=== PATIENT | male | born 1985 | race Caucasian/White ===

== ENCOUNTER 2016-04-09 16:22 | Emergency (ER) | payer MEDICARE, MEDICAID ==
[2016-04-09] MEDS ORDERED: ONDANSETRON HCL 4 MG/2 ML VIAL ONE ×2 (16:48→17:18)
[2016-04-09] MEDS ORDERED: OSELTAMIVIR PHOSPHATE 75 MG CAPSULE PO ONE (17:22)
[2016-04-09] MEDS ORDERED: ACETAMINOPHEN 325 MG TABLET PO ONE (17:23)
[2016-04-09] MEDS ORDERED: IBUPROFEN 600 MG TABLET PO ONE (17:23)
--- NOTE | 2016-04-09 18:17 | ER PHYSICIAN DOCUMENTATION ---
Physician Documentation [facility] Name:Link Angulo Age:30 yrs Sex:Male :1985 Arrival Date:04/09/2016 Time:16:22 Bed1 Private MD:Verito Josue ED, Chris Disposition: 04/09 17:50 Chart complete. cd Disposition: 04/09/16 18:00 Discharged to Home/Self Care. Impression: Influenza, Vomiting - Dehydration. - Condition is Fair. - Discharge Instructions: DEHYDRATION (6y-Adult), INFLUENZA (Adult), VOMITING (6y-Adult). - Prescriptions for Tamiflu 75 mg Oral Capsule - take 1 capsule by ORAL route every 12 hours for 5 days; 10 capsule. Zofran 4 mg Oral - take 1 tablet by ORAL route every 6 hours .; 20 tablet. - Medical Reconciliation form form. - Follow up: Verito Josue DO; When: 7 - 10 days; Reason: Recheck today's complaints, Continuance of care. - Problem is new. - Symptoms have improved. - Notes: Drink 2 - 3 quarts of water or Gatorade every day. Take Zofran 4mg under tongue every 4 - 6 hours as needed for nausea or vomiting Take Tamiflu 75mg by mouth every 12 hours for 5 days. Take Ibuprofen 600mg by mouth every 6 hours for 4 - 5 days. Take Tylenol 650mg by mouth every 6 hours for 4 - 5 days. Avoid contact with roommates, wear a mask to prevent spread of the Flu and No Work until your symptoms are completely gone. Rest.... HPI: 16:40 This 30 yrs old Male presents to ER via Walk In with complaints of Flu cd Symptoms. 16:40 The patient presents to the emergency department with nausea, that is moderate, with cd vomiting, 3 times today, without any complaints of abdominal pain. Onset: The symptom(s)/episode began/occurred acutely, today. Possible causes: Patient exposed to friend who was diagnosed today with Influenza A. The symptoms are aggravated by nothing. The symptoms are alleviated by nothing. Associated signs and symptoms: Pertinent positives: anorexia, fever, nausea, vomiting, muscle aches and headache. Severity of symptoms: At their worst the symptoms were moderate in the emergency department the symptoms are unchanged. The patient has not experienced similar symptoms in the past. Historical: - Allergies: No known drug Allergies; - Home Meds: 1. unknown - Tetanus: < 10 years. - Ebola Screening: : Patient denies exposure to infectious person. Patient denies travel to an Ebola-affected area in the 21 days before illness onset. No symptoms or risks identified at this time. . - Immunization history: Flu Vaccine None. - Social history: Smoking status: Patient states was never smoker of tobacco. Patient/guardian denies using alcohol. - Code Status:: Full code. ROS: 16:50 Eyes: Negative for injury, pain, redness, discharge, blurry vision and loss of vision. cd Neck: Negative for injury, pain, stiffness and swelling. 16:50 Cardiovascular: Negative for chest pain, palpitations, edema and pleuritic pain. cd 16:50 Constitutional: Positive for body aches, chills, fever, poor PO intake. 16:50 ENT: Negative for ear pain, rhinorrhea, sinus congestion, sinus pain, sore throat. 16:50 Respiratory: Positive for cough, Negative for hemoptysis, orthopnea, shortness of breath, wheezing. 16:50 Abdomen/GI: Positive for nausea, vomiting, anorexia. 16:50 Neuro: Positive for headache. 16:50 All other systems are negative. Exam: Head/Face: Normocephalic, atraumatic. ENT: Nares patent. No nasal discharge, no septal abnormalities noted. Tympanic membranes are normal and external auditory canals are clear. Oropharynx with no redness, swelling, or masses, exudates, or evidence of obstruction, uvula midline. Mucous membranes moist. Neck: Trachea midline, no thyromegaly or masses palpated, and no cervical lymphadenopathy. Supple, full range of motion without nuchal rigidity, or vertebral point tenderness. No Meningismus. Chest/axilla: Normal chest wall appearance and motion. Nontender with no deformity. No lesions are appreciated. Respiratory: Lungs have equal breath sounds bilaterally, clear to auscultation and percussion. No rales, rhonchi or wheezes noted. No increased work of breathing, no retractions or nasal flaring. Back: No spinal tenderness. No costovertebral tenderness. Full range of motion. Skin: Warm, dry with normal turgor. Normal color with no rashes, no lesions, and no evidence of cellulitis. MS/ Extremity: Pulses equal, no cyanosis. Neurovascular intact. Full, normal range of motion. 17:00 Neuro: Awake and alert, GCS 15, oriented to person, place, time, and situation. cd Cranial nerves II-XII grossly intact. Motor strength 5/5 in all extremities. Sensory grossly intact. Cerebellar exam normal. Normal gait. 17:00 Constitutional: The patient appears alert, awake, non-diaphoretic, non-toxic, well developed, well nourished, obese, in obvious distress, mildly distressed. 17:00 Cardiovascular: Rate: tachycardic, actual rate is 120 bpm, Rhythm: regular, Pulses: no pulse deficits are appreciated, Heart sounds: normal. 17:00 Abdomen/GI: Inspection: abdomen appears normal, Bowel sounds: normal, active, Palpation: abdomen is soft and non-tender, Indicators: McBurney's point is not tender, Ko's sign is negative. Vital Signs: 16:50 BP 156 / 92; Pulse 123; Resp 18; Temp 99.9; Pulse Ox 91% on R/A; Weight 90.72 kg; Pain lb 0/10; 17:53 BP 139 / 71; Pulse 114; Resp 18; Pulse Ox 92% on R/A; Pain 0/10; lb 18:15 BP 139 / 70; Pulse 112; Resp 16; Temp 98.7; Pain 0/10; lb [place] Coma Score: 17:00 Eye Response: spontaneous(4). Verbal Response: oriented(5). Motor Response: obeys cd commands(6). Total: 15. MDM: 16:35 Data interpreted: Pulse oximetry: on room air is 92 %. Interpretation: normal. cd 16:45 Data reviewed: vital signs, nurses notes, old medical records, and as a result, I will cd continue to observe the patient, administer IV fluids, NS bolus, NS maintenence, prescribe pain medication, acetaminophen, ibuprofen. 17:00 Differential diagnosis: gastritis, viral gastroenteritis, Flu Syndrome. cd 17:08 Patient medically screened. cd 17:50 Counseling: I had a detailed discussion with the patient and/or guardian regarding: the cd historical points, exam findings, and any diagnostic results supporting the discharge/admit diagnosis, lab results, the need for outpatient follow up, for a recheck, with the patient's primary care provider, to return to the emergency department if symptoms worsen or persist or if there are any questions or concerns that arise at home. Response to treatment: the patient's symptoms have markedly improved after treatment, patient is well hydrated. and as a result, I will discharge patient. 04/09 17:05 Order name: INFLUENZA A/B; Complete Time: 17:08 EDMS 04/09 17:08 Interpretation: Abnormal: INFLUENZA A/B INF A POS, B NEG. cd Dispensed Medications: 16:46 Drug: Zofran 4 mg; Route: IVP; Infused Over: 2 mins; Site: right hand; lb 18:13 Follow up: Response: Nausea is decreased lb 16:52 Drug: NS 0.9% 1000 ml; Route: IV; Rate: bolus; Site: right hand; lb 18:14 Follow up: IV Status: Infusion discontinued; IV Intake: 1000ml lb 17:10 Drug: Zofran 4 mg; Route: IVP; Infused Over: 2 mins; Site: right hand; lb 18:13 Follow up: Response: Nausea is decreased lb 17:29 Drug: Tylenol 975 mg; Route: PO; lb 18:13 Follow up: Response: Pain is decreased lb 17:29 Drug: Ibuprofen 600 mg; Route: PO; lb 18:14 Follow up: Response: Pain is decreased lb 17:29 Drug: Tamiflu 75 mg; Route: PO; lb 18:14 Follow up: Response: No adverse reaction lb 17:29 Drug: NS 0.9% 1000 ml; Route: IV; Rate: bolus; Site: right hand; lb 18:14 Follow up: IV Status: Infusion discontinued; IV Intake: 1000ml lb Signatures: Cyril Mayo MD MD cd Janzen, Sarah sj Bollock, Lynda lb
--- NOTE | 2016-04-09 18:17 | ER NURSING DOCUMENTATION ---
Nurse's Notes [facility] Name:Link Angulo Age:30 yrs Sex:Male :1985 Arrival Date:04/09/2016 Time:16:22 Bed1 Private MD:Verito Josue Diagnosis:Influenza;Vomiting - Dehydration Presentation: 04/09 16:34 Acuity: GA 3 lb 16:49 Presenting complaint: Patient states: chills, vomited x 3 today, headache. Transition lb of care: Home. Notified ED Physician of Dr. Mayo notified. 16:49 Method Of Arrival: Walk In lb Triage Assessment: 16:50 General: Appears uncomfortable, Behavior is cooperative. Pain: Denies pain. GI: Reports lb nausea, vomiting, since today. Historical: - Allergies: No known drug Allergies; - Home Meds: 1. unknown - Tetanus: < 10 years. - Ebola Screening: : Patient denies exposure to infectious person. Patient denies travel to an Ebola-affected area in the 21 days before illness onset. No symptoms or risks identified at this time. . - Immunization history: Flu Vaccine None. - Social history: Smoking status: Patient states was never smoker of tobacco. Patient/guardian denies using alcohol. - Code Status:: Full code. Screenin:51 Infectious Disease Risk None. Abuse screen: Denies threats or abuse. Denies injuries lb from another. Nutritional screening: No deficits noted. Assessment: 16:51 See Triage Assessment done by same RN. GI: Abdomen is flat, Bowel sounds present X 4 lb quads. Vital Signs: 16:50 BP 156 / 92; Pulse 123; Resp 18; Temp 99.9; Pulse Ox 91% on R/A; Weight 90.72 kg; Pain lb 0/10; 17:53 BP 139 / 71; Pulse 114; Resp 18; Pulse Ox 92% on R/A; Pain 0/10; lb 18:15 BP 139 / 70; Pulse 112; Resp 16; Temp 98.7; Pain 0/10; lb [place] Coma Score: 17:00 Eye Response: spontaneous(4). Verbal Response: oriented(5). Motor Response: obeys cd commands(6). Total: 15. ED Course: 16:26 Patient arrived in ED. ama 16:27 Verito Josue DO is Private Physician. ama 16:34 Ana M Hummel is Primary Nurse. lb 16:46 Triage completed. lb 16:49 Inserted peripheral IV: 20 gauge in right hand and blood collected. sj 16:51 Valuables Remains with patient Patient has correct armband on for positive lb identification. Placed in gown. Bed in low position. Call light in reach. Side rails up X 1. 17:08 Cyril Mayo MD is Attending Physician. cd 17:59 Verito Josue DO is Referral Physician. cd 18:15 Discontinued IV intact, No redness/swelling at site. lb Administered Medications: 16:46 Drug: Zofran 4 mg; Route: IVP; Infused Over: 2 mins; Site: right hand; lb 18:13 Follow up: Response: Nausea is decreased lb 16:52 Drug: NS 0.9% 1000 ml; Route: IV; Rate: bolus; Site: right hand; lb 18:14 Follow up: IV Status: Infusion discontinued; IV Intake: 1000ml lb 17:10 Drug: Zofran 4 mg; Route: IVP; Infused Over: 2 mins; Site: right hand; lb 18:13 Follow up: Response: Nausea is decreased lb 17:29 Drug: Tylenol 975 mg; Route: PO; lb 18:13 Follow up: Response: Pain is decreased lb 17:29 Drug: Ibuprofen 600 mg; Route: PO; lb 18:14 Follow up: Response: Pain is decreased lb 17:29 Drug: Tamiflu 75 mg; Route: PO; lb 18:14 Follow up: Response: No adverse reaction lb 17:29 Drug: NS 0.9% 1000 ml; Route: IV; Rate: bolus; Site: right hand; lb 18:14 Follow up: IV Status: Infusion discontinued; IV Intake: 1000ml lb Intake: 18:14 IV: 1000ml; Total: 1000ml. lb 18:14 IV: 1000ml; Total: 2000ml. lb 18:15 PO: 200ml; IV: 2000ml; Total: 4200ml. lb Output: 18:15 Urine: 5000ml (Voided); Total: 5000ml. lb Outcome: 18:00 Discharge ordered by . cd 18:15 Discharged to home ambulatory. lb 18:15 Condition: stable 18:15 Discharge Assessment: Patient awake, alert and oriented x 3. No cognitive and/or functional deficits noted. Patient verbalized understanding of disposition instructions. 18:15 Instructed on discharge instructions, follow up and referral plans. 18:15 IV D/Cezar 18:16 Patient left the ED. lb 04/10 11:45 Discharge F/U Call: Unable to reach: no answer st 04/11 09:38 Discharge F/U Call: Unable to reach: no answer st 09:38 Discharge F/U Call: Unable to reach: no answer st Signatures: Dianne Francis, RN RN Cyril Dennis MD MD cd Averdick, Andrew, Maximino García, Ana M Orellana
== END 2016-04-09 18:17 | disposition home or self-care (01) ==
LOC: ER 16:22
DX: J11.1 Influenza due to unidentified influenza virus with other respiratory manifestations (principal); E86.0 Dehydration; R11.2 Nausea with vomiting, unspecified
CPT/HCPCS: 87449; 96361; 96374; 99283; 99284; J2405